=== PATIENT | female | born 1960 | race African-American/Black ===

== ENCOUNTER 2017-11-16 10:42 | Emergency (ER) | payer OTHER ==
[~2017-11-16] VITALS: Ht 170.2 cm; Wt 69.0 kg
[2017-11-16 11:33] LABS: BASOPHILS % 0.7 % (0.0-2.0); EOSINOPHILS % 0.8 % (0.0-5.0); LYMPHOCYTES % 38.8 % (20.0-50.0); MEAN CORPUSCULAR HEMOGLOBIN 27.3 pg (28.0-32.0); MEAN CORPUSCULAR VOLUME 83.9 fL (81.0-99.0); MEAN PLATELET VOLUME 7.6 fl (7.4-10.4); MONOCYTES % 8.3 % (2.0-8.0); NEUTROPHILS % 51.4 % (40.0-76.0); PLATELET 264 x1000/uL (130-400); RED BLOOD CELL COUNT 4.76 mill/uL (4.2-5.4); RED CELL DISTRIBUTION WIDTH 14.1 % (11.6-14.6)
[2017-11-16 11:39] LABS: CHLORIDE 105 mEq/L (98-107)
[2017-11-16 11:43] LABS: ETHANOL BLOOD < 10 mg/dL
[2017-11-16] MEDS ORDERED: DIPHENHYDRAMINE 50MG/ML VIAL IV ONE (12:00)
[2017-11-16] MEDS ORDERED: SODIUM CHLORIDE 0.9% 1,000 ML IV ONE (12:00)
[2017-11-16] MEDS ORDERED: METOCLOPRAMIDE HCL 10MG/2ML VIAL IV ONE (12:00)
[2017-11-16] MEDS ORDERED: KETOROLAC 15MG/ML VIAL IV ONE (12:15)
[2017-11-16 14:42] LABS: CLARITY URINE CLEAR (CLEAR); COLOR URINE YELLOW (YELLOW); KETONES URINE NEGATIVE (NEGATIVE); LEUKOCYTE ESTERASE URINE 2+ (NEGATIVE); NITRITE URINE NEGATIVE (NEGATIVE); OCCULT BLOOD URINE NEGATIVE (NEGATIVE); PH URINE 5.5 (4.5-8.0); PROTEIN URINE NEGATIVE (NEGATIVE); SPECIFIC GRAVITY URINE 1.006 (1.005-1.030); UROBILINOGEN URINE 0.2 E.U./dL (0.2-1.0)
[2017-11-16 15:01] LABS: *AMPHETAMINES SCREEN URINE NEGATIVE (NEGATIVE); *BARBITURATES SCREEN URINE NEGATIVE (NEGATIVE); *BENZODIAZEPINES SCREEN URINE NEGATIVE (NEGATIVE); CANNABINOID URINE SCREEN NEGATIVE (NEGATIVE); METHADONE URINE SCREEN NEGATIVE (NEGATIVE); OPIATES URINE SCREEN NEGATIVE (NEGATIVE); PHENCYCLIDINE URINE SCREEN NEGATIVE (NEGATIVE)
[2017-11-16 15:03] LABS: *COCAINE SCREEN URINE NEGATIVE (NEGATIVE)
[2017-11-16 16:32] VITALS: BP 120/76
== END 2017-11-16 16:45 | disposition home or self-care (01) ==
LOC: ER 10:42
DX: G40.909 Epilepsy, unspecified, not intractable, without status epilepticus (principal); R51 Headache; H53.143 Visual discomfort, bilateral; N39.0 Urinary tract infection, site not specified; R73.9 Hyperglycemia, unspecified; F32.9 Major depressive disorder, single episode, unspecified; Z88.0 Allergy status to penicillin; Z88.5 Allergy status to narcotic agent; Z88.8 Allergy status to other drugs, medicaments and biological substances
CPT/HCPCS: 36415; 70450; 80053; 80305; 81003; 85025; 87086; 93005; 96374; 96375; 99285; G0482; J1200; J1885; J2765; J7030